=== PATIENT | male | born 1980 | race Asian ===

== ENCOUNTER 2016-09-26 11:16 | Emergency (ER) | payer OTHER ==
[2016-09-26 11:21] VITALS: BP 126/80
[2016-09-26] MEDS ORDERED: Sulfacetamide 10 % OPTH.SOL RIGHT EYE ONE (11:59)
--- NOTE | 2016-09-26 13:06 | ED ---
Kenney Alanis SooYoung, scribed for Risa Chisholm MD on 09/26/16 at 1143 . Throat Pain/Nasal Congestion - HPI Summary HPI Summary: A 36 y/o M presents to ED with R eye pain onset [employer]. Pt states he uses tweezers to pluck out the short eyelashes that poke into his eye. When doing so today, pt poked his eye with the tweezers. States it feels that something is in his eye. NKA. Pt works as a Professor. Non-smoker. Occasional ETOH. No drugs. Denies pert PMHx. - History of Current Complaint Chief Complaint: EDEyeProblem Time Seen by Provider: 09/26/16 11:26 Hx Obtained From: Patient Onset/Duration: Sudden Onset, Still Present Severity: Mild Associated Signs And Symptoms: Positive: FB Sensation - Allergies/Home Medications Allergies/Adverse Reactions: Allergies Allergy/AdvReac Type Severity Reaction Status Date / Time No Known Allergies Allergy Verified 09/26/16 11:32 PMH/Surg Hx/FS Hx/Imm Hx Previously Healthy: Yes Sensory History: Reports: Hx Contacts or Glasses Denies: Hx Eye Prosthesis Opthamlomology History: Reports: Hx Contacts or Glasses Denies: Hx Eye Prosthesis Infectious Disease History: No Infectious Disease History: Denies: Traveled Outside the [place] in Last 30 Days - Family History Known Family History: Negative: Hypertension - Social History Occupation: Employed Full-time Lives: With Family - [employer] Alcohol Use: Occasionally Hx Substance Use: No Substance Use Type: Reports: None Hx Tobacco Use: No Smoking Status (MU): Never Smoked Tobacco Review of Systems Negative: Fever Positive: Other - pos: R eye pain All Other Systems Reviewed And Are Negative: Yes Physical Exam Triage Information Reviewed: Yes Vital Signs On Initial Exam: Initial Vitals Temp Pulse Resp Pulse Ox 97.8 F 94 20 95 09/26/16 11:19 09/26/16 11:19 09/26/16 11:19 09/26/16 11:19 Vital Signs Reviewed: Yes Appearance: Positive: Well-Appearing, No Pain Distress Skin: Positive: Warm, Skin Color Reflects Adequate Perfusion, Dry Eyes: Positive: EOMI, KEE, Other: - florescence uptake in R eye approx 3 o' clock; no foreign body ENT: Positive: Pharynx normal, TMs normal Neck: Positive: Supple, Nontender Respiratory/Lung Sounds: Positive: Clear to Auscultation, Breath Sounds Present. Negative: Rales, Rhonchi, Wheezes Cardiovascular: Positive: RRR. Negative: Murmur, Rub, Other - neg: gallop Musculoskeletal: Positive: Strength/ROM Intact. Negative: Edema Left, Edema Right Neurological: Positive: Sensory/Motor Intact, Alert, Oriented to Person Place, Time, CN Intact II-III Psychiatric: Positive: Affect/Mood Appropriate Diagnostics - Vital Signs Vital Signs Temp Pulse Resp BP Pulse Ox 09/26/16 11:29 97.8 F 94 20 126/80 95 09/26/16 11:21 126/80 09/26/16 11:19 97.8 F 94 20 95 - Laboratory Lab Statement: Any lab studies that have been ordered have been reviewed, and results considered in the medical decision making process. EENT Course/Dx - Course Course Of Treatment: 36 yo male who uses tweezers to get pluck short eyelashes out of his eye accidentally hit eye sustaining a corneal abrasion from nasal 3oclock to pupil. Pt says discomfort is very mild and didn't want pain meds, he does not wear contacts. Pt given ophtho antibiotic drops and will followup with [facility] as an outpt, advised to wear sunglasses in the sun - Diagnoses Provider Diagnoses: Corneal abrasion Discharge - Discharge Plan Condition: Stable Disposition: HOME Patient Education Materials: Corneal Abrasion (ED) Referrals: Jarred Taylor MD [Medical Doctor] - 2 Days (Follow up in 2-3 days.) Additional Instructions: You denied opiates for pain. Use the antibiotics as prescribed. Follow up with Dr. Taylor, ophthalmology, in 2-3 days. Please return to the ED if you experience new or worsening symptoms. The documentation as recorded by the Kenney singh SooYoung accurately reflects the service I personally performed and the decisions made by me, Risa Chisholm MD.
== END 2016-09-26 12:49 | disposition home or self-care (01) ==
LOC: ED 11:16
DX: S05.01XA Injury of conjunctiva and corneal abrasion without foreign body, right eye, initial encounter (principal); W22.8XXA Striking against or struck by other objects, initial encounter; Y93.89 Activity, other specified; Y92.9 Unspecified place or not applicable
CPT/HCPCS: 99281; A9270-GY